=== PATIENT | female | born 1975 | race African-American/Black ===

== ENCOUNTER 2020-03-24 15:35 | Emergency (ER) | payer SELFPAY ==
[~2020-03-24] VITALS: Ht 167.6 cm; Wt 142.0 kg
[~2020-03-24 15:35] MED LIST: AMOXICILLIN500 MG OR; ULTRAM50 M1 OR
[2020-03-24 17:05] LABS: HEMATOCRIT 39.1 % (37.0-47.0); HEMOGLOBIN 12.1 g/dl (12.0-16.0); IMMATURE GRANULOCYTES 0.1 % (0.0-5.0); MEAN CORPUSCULAR HGB 25.7 pG CALC (26.0-32.0); MEAN CORPUSCULAR HGB CONC 30.9 g/dL CAL (32.0-36.0); NEUT# 4.5 thou/uL (2.00-7.15); RED BLOOD COUNT 4.71 mill/uL (4.20-5.60); RED CELL DISTRI WIDTH 14.8 % (11.5-15.5)
[2020-03-24 17:08] LABS: URINE BILIRUBIN - DIPSTICK NEGATIVE (NEGATIVE); URINE BLOOD DIPSTICK TRACE-LYSED (NEGATIVE); URINE COLOR YELLOW; URINE GLUCOSE - DIPSTICK NEGATIVE (NEGATIVE); URINE KETONE NEGATIVE (NEGATIVE); URINE LEUK ESTERASE NEGATIVE (NEGATIVE); URINE NITRITE - DIPSTICK NEGATIVE (Negative); URINE PH 5.5 (4.5-8.0); URINE PROTEIN - DIPSTICK NEGATIVE (NEG-TRACE); URINE SPECIFIC GRAVITY >=1.030; URINE UROBILINOGEN - DIPSTICK 0.2 E.U./dL (0.2)
[2020-03-24 17:24] LABS: ALBUMIN 4.1 g/dL (3.2-5.0); ALKALINE PHOSPHATASE 64 u/l (38-126); AMYLASE 72 u/l (30-110); ANION GAP 10 (6-22 (CALC)); BILIRUBIN, TOTAL 0.3 mg/dL (0.0-1.4); BUN 14 mg/dL (7-17); BUN/CREATININE RATIO 22 (12-20 (CALC)); CARBON DIOXIDE 27 mmol/l (22-30); CHLORIDE 104 mmol/l (95-108); CREATININE 0.7 mg/dL (0.5-1.0); GFR > 60 ML/MIN (>=60 (CALC)); GFR FOR AFR.AMER. > 60 ML/MIN (>=60 (CALC)); LIPASE 102 u/l (23-300); POTASSIUM 3.5 mmol/l (3.5-5.1); SGOT/AST 34 u/l (14-36); SODIUM 138 mmol/l (137-146); TOTAL PROTEIN 7.4 g/dL (6.3-8.2)
[2020-03-24] MEDS ORDERED: ULTRAM50 M1 PO (19:23)
[2020-03-24] MEDS ORDERED: CYCLOBENZAPRINE10 MG PO (19:23)
[2020-03-24 20:27] VITALS: BP 169/59
[2020-03-24] MEDS ORDERED: TYLENOL # 31 TA1 PO (20:36)
== END 2020-03-24 20:27 | disposition home or self-care (01) | DRG 552 ==
LOC: ED 15:35
PROVIDERS: Emergency Medicine
DX: M47.816 Spondylosis without myelopathy or radiculopathy, lumbar region (principal); I10 Essential (primary) hypertension; F17.200 Nicotine dependence, unspecified, uncomplicated
CPT/HCPCS: Q9967

== ENCOUNTER 2021-03-07 08:06 | Emergency (ER) | payer SELFPAY ==
[~2021-03-07] VITALS: Ht 167.6 cm; Wt 150.0 kg
[~2021-03-07 08:06] MED LIST changes: +CYCLOBENZAPRINE10 MG PO; +TYLENOL # 31 TA1 PO; +ULTRAM50 M1 PO
[2021-03-07 09:46] VITALS: BP 162/107
[2021-03-07] MEDS ORDERED: HYDROCHLOROT25 MG PO (10:01)
[2021-03-07] MEDS ORDERED: PENICILLN VK500 M1 PO ×2 (10:28→13:12)
== END 2021-03-07 11:58 | disposition home or self-care (01) | DRG 159 ==
LOC: ED 08:06
DX: K02.9 Dental caries, unspecified (principal); I10 Essential (primary) hypertension
CPT/HCPCS: J0561; J2540

== ENCOUNTER 2022-10-01 18:20 | Emergency (ER) | payer BC ==
[~2022-10-01] VITALS: Ht 167.6 cm; Wt 142.0 kg
[2022-10-01] VITALS (7 sets, daily range): BP systolic 154–173; BP diastolic 81–98
[~2022-10-01 18:20] MED LIST changes: +HYDROCHLOROT25 MG PO; +PENICILLN VK500 M1 PO
[2022-10-01 19:01] LABS: URINE BLOOD DIPSTICK Trace-intact (NEGATIVE); URINE GLUCOSE - DIPSTICK Negative (NEGATIVE); URINE KETONE Trace mg/dL (NEGATIVE); URINE LEUK ESTERASE Negative (NEGATIVE); URINE NITRITE - DIPSTICK Negative (Negative); URINE PH 5.5 (4.5-8.0); URINE PROTEIN - DIPSTICK 30 mg/dL (NEG-TRACE); URINE SPECIFIC GRAVITY >=1.030
[2022-10-01 19:03] LABS: URINE COLOR Yellow
[2022-10-01 19:07] LABS: URINE RBC 0-2 RBC/hpf (0-5); URINE SQUAMOUS EPITHELIAL CELL MANY EPI/hpf (0-FEW)
[2022-10-01] MEDS ORDERED: HYDROCHLOROT25 MG PO (19:10)
[2022-10-01 19:28] LABS: BASO% 0.4 % (0-3); EOS% 3.3 % (0-8); HEMATOCRIT 36.8 % (37.0-47.0); HEMOGLOBIN 11.5 g/dl (12.0-16.0); IMMATURE GRANULOCYTES 0.1 % (0.0-5.0); LYMPH% 49.6 % (15-41); MEAN CELL VOLUME 84.2 fL CALC (80.0-100.0); MEAN CORPUSCULAR HGB 26.3 pG CALC (26.0-32.0); MEAN CORPUSCULAR HGB CONC 31.3 g/dL CAL (32.0-36.0); MONO% 6.9 % (2-13); NEUT# 3.31 thou/uL (2.00-7.15); NEUT% 39.7 % (42-76); RED BLOOD COUNT 4.37 mill/uL (4.20-5.60); RED CELL DISTRI WIDTH 14.7 % (11.5-15.5)
[2022-10-01 19:41] LABS: ALBUMIN 3.8 g/dL (3.2-5.0); ALKALINE PHOSPHATASE 53 u/l (38-126); ANION GAP 11 (6-22 (CALC)); BILIRUBIN, TOTAL 0.3 mg/dL (0.02-1.3); BUN 13 mg/dL (7-17); BUN/CREATININE RATIO 18 (12-20 (CALC)); CARBON DIOXIDE 27 mmol/l (22-30); CHLORIDE 105 mmol/l (95-108); CREATININE 0.7 mg/dL (0.5-1.0); GFR FOR AFR.AMER. > 60 ML/MIN (>=60 (CALC)); GFR OTHER RACES > 60 ML/MIN (>=60 (CALC)); POTASSIUM 3.7 mmol/l (3.5-5.1); SGOT/AST 48 u/l (14-36); SODIUM 139 mmol/l (137-146); TOTAL PROTEIN 7.2 g/dL (6.3-8.2)
== END 2022-10-01 21:38 | disposition home or self-care (01) | DRG 392 ==
LOC: ED 18:20
PROVIDERS: Nurse Practitioner Family
DX: R10.32 Left lower quadrant pain (principal); I10 Essential (primary) hypertension; M54.50 Low back pain, unspecified

== ENCOUNTER 2023-10-29 10:49 | Emergency (ER) | payer BC ==
[~2023-10-29] VITALS: Ht 167.6 cm; Wt 141.0 kg
[~2023-10-29 10:49] MED LIST changes: +AMOX/K CLAV875 M1 PO; +BENZONATATE200 MG PO; +BROMFED DM 2-301 SOL PO; +DIFLUCAN100 M1 PO; +IPRATROPIU0.5 MG/3 M IN; +MUCINEX1200 MG PO; +NEBULIZER NB; +PREDNISONE50 MG PO; +ROBITUSSIN AC10 ML PO; +VENTOLIN HFA108 MCG IN
[2023-10-29 10:59] VITALS: BP 135/93
[2023-10-29 11:01] VITALS: BP 147/97
[2023-10-29] MEDS ORDERED: PENICILLN VK500 MG PO (11:06)
[2023-10-29] MEDS ORDERED: LIDOcaine HCl 1% (Local Anesth.) 20 ML VIAL IM STA (11:06)
[2023-10-29 11:09] VITALS: BP 137/95
[2023-10-29] MEDS ORDERED: cefTRIAXone SODIUM 1 GM/VIAL SDV IM ONE (11:10)
[2023-10-29 11:16] VITALS: BP 142/95
[2023-10-29 11:31] VITALS: BP 141/90
== END 2023-10-29 11:45 | disposition home or self-care (01) | DRG 159 ==
LOC: ED 10:49
DX: K08.89 Other specified disorders of teeth and supporting structures (principal); I10 Essential (primary) hypertension; E11.9 Type 2 diabetes mellitus without complications